=== PATIENT | female | born 1960 | race American Indian/Alaskan Native ===

== ENCOUNTER 2019-01-13 10:26 | Outpatient (CLI) | payer OTHER ==
--- NOTE | 2019-01-13 11:53 | Mammography Report ---
DIGITAL SCREENING MAMMOGRAM WITH CAD, 01/13/2019 INDICATION: Routine screening mammography. TECHNIQUE: Digital bilateral 2D mammography was obtained in the craniocaudal and mediolateral obliq ue projections. This examination was interpreted with the benefit of Computer-Aided Detection analysi s. COMPARISON: None available at the time of dictation. FINDINGS: Breast Density: The breasts are extremely dense, which lowers the sensitivity of mammography. There is no evidence of dominant mass, suspicious calcifications or architectural distortion in eithe r breast. However, there is focal asymmetry seen in the lateral posterior aspect of the left breast, identified in the exaggerated CC projection, that is probably normal fibroglandular tissue, but it wo uld be helpful to compare and confirm with prior mammogram. We will request prior mammogram for faheem rison and issue an addendum at that time. IMPRESSION: Questionable left posterior abnormal asymmetry versus normal fibroglandular tissue. We wi ll attempt to obtain prior mammograms for comparison and issue an addendum at that time. BI-RADS Category 0: Incomplete. Needs additional imaging evaluation and/or prior mammograms for faheem rison. A "normal" or negative report should not discourage follow up or biopsy of a clinically significant f inding. A written summary of these findings will be mailed to the patient. The patient will be entered into a mammography reporting system which will generate a reminder letter for the patient's next appointmen t at the appropriate interval. The [employer] recommends yearly mammograms starting at age 40 and continuing as l moriah as a woman is in good health. Breast MRI is recommended for women with an approximate 20-25% or greater lifetime risk of breast cancer, including women with a strong family history of breast or [place]va [place] cancer or who have been treated for Hodgkin's disease. Signer Name: Dorota Garcia MD Signed: 01/13/2019 11:48 AM Workstation Name: [id number]
== END 2019-01-13 10:27 | disposition home or self-care (01) ==
LOC: MAMMO 10:26
PROVIDERS: ATTEND Internal Medicine
DX: Z12.31 Encounter for screening mammogram for malignant neoplasm of breast (principal); F17.200 Nicotine dependence, unspecified, uncomplicated; Z90.49 Acquired absence of other specified parts of digestive tract
CPT/HCPCS: 77067

== ENCOUNTER 2020-03-30 12:49 | Outpatient (CLI) | payer OTHER ==
--- NOTE | 2020-03-30 15:13 | Mammography Report ---
DIGITAL SCREENING MAMMOGRAM WITH CAD, 03/30/2020 INDICATION: Routine screening mammography. SCREENING MAMMOGRAM TECHNIQUE: Digital bilateral 2D mammography was obtained in the craniocaudal and mediolateral obliq ue projections. This examination was interpreted with the benefit of Computer-Aided Detection analysi s. COMPARISON: 01/13/2019 FINDINGS: Breast Density: The breasts are extremely dense, which lowers the sensitivity of mammography. There is no evidence of dominant mass, suspicious calcifications or architectural distortion in eithe r breast. Largely stable bilateral nodularity. IMPRESSION: Follow up recommendation: Routine yearly BI-RADS Category 2: Benign. A "normal" or negative report should not discourage follow up or biopsy of a clinically significant f inding. A written summary of these findings will be mailed to the patient. The patient will be entered into a mammography reporting system which will generate a reminder letter for the patient's next appointmen t at the appropriate interval. The [employer] recommends yearly mammograms starting at age 40 and continuing as l moriah as a woman is in good health. Breast MRI is recommended for women with an approximate 20-25% or greater lifetime risk of breast cancer, including women with a strong family history of breast or [place]va [place] cancer or who have been treated for Hodgkin's disease. Signer Name: Gilbert Galvan MD Signed: 03/30/2020 3:09 PM Workstation Name: [id number]
== END 2020-03-30 12:50 | disposition home or self-care (01) ==
LOC: MAMMO 12:49
PROVIDERS: ATTEND Physician Assistant Medical
DX: Z12.31 Encounter for screening mammogram for malignant neoplasm of breast (principal)
CPT/HCPCS: 77067

== ENCOUNTER 2021-04-06 14:27 | Outpatient (CLI) | payer OTHER | END 2021-04-06 14:28 | disposition home or self-care (01) | LOC: MAMMO 14:27 | PROVIDERS: ATTEND Physician Assistant Medical | DX: Z12.31 Encounter for screening mammogram for malignant neoplasm of breast (principal) | CPT/HCPCS: 77067 ==